=== PATIENT | female | born 1995 | race African-American/Black ===

== ENCOUNTER 2017-01-21 15:37 | Emergency (ER) | payer SELFPAY ==
[2017-01-21 16:39] LABS: BASOPHILS 0.4 %; BASOPHILS ABSOLUTE 0.02 10/3/uL (0.0-0.16); EOSINOPHILS ABSOLUTE 0.09 10/3/uL (0.0-0.53); ER CBC TAT 0 Hrs 09 Mins; HEMATOCRIT 39.1 % (36.0-48.0); HEMOGLOBIN 13.3 g/dL (12.0-16.0); IMMATURE GRANULOCYTES 0.2 %; IMMATURE GRANULOCYTES ABSOLUTE 0.01 10/3/uL (0.0-0.11); LYMPHOCYTES 33.4 %; LYMPHOCYTES ABSOLUTE 1.51 10/3/uL (0.67-4.30); MEAN CORPUSCULAR HEMOGLOB 31.7 pg (26.0-34.0); MEAN PLATELET VOLUME 10.2 fL (9.2-13.0); MONOCYTES 11.7 %; MONOCYTES ABSOLUTE 0.53 10/3/uL (0.21-1.20); NEUTROPHILS 52.3 %; NEUTROPHILS ABSOLUTE 2.36 10/3/uL (2.02-8.40); PLATELET COUNT 266 10/3/uL (150-400); RBC DISTRIBUTION WIDTH 11.9 % (12.0-16.0); RED CELL COUNT 4.19 10/6/uL (4.0-5.6); WHITE BLOOD CELLS 4.5 10/3/uL (4.5-10.5)
[2017-01-21 16:41] LABS: MANUAL DIFF NO %; MEAN CORPUSCULAR VOLUME 93.3 fL (80-100)
[2017-01-21 16:47] LABS: ASCORBIC ACID (UR NOT ORDER) NEG (NEG); BILIRUBIN, URINE NEGATIVE (NEG); KETONE, URINE NEGATIVE (NEG); LEUKOCYTE ESTERASE(NOT OR NEG (NEG); NITRITE (URINE) NEG (NEG); WBC (NOT ORDERED) (RFLEX) 1 (0-5)
[2017-01-21 16:53] LABS: A/G RATIO 1.2 (0.7-1.9); ALKALINE PHOSPHATASE 64 U/L (45-117); BUN (BLOOD UREA NITROGEN) 7 MG/DL (6-23); CALCIUM, SERUM 8.8 MG/DL (8.5-10.4); CHLORIDE, SERUM 105 MMOL/L (96-112); CO2 (CARBON DIOXIDE) 29 MMOL/L (24-34); CREATININE 0.76 MG/DL (0.55-1.02); GFR AFRICAN AMERICAN 131 ML/MIN (>=60); GFR NON AFRICAN AMERICAN 113 ML/MIN (>=60); GLOBULIN 3.4 G/DL (2.5-4.1); GLUCOSE, SERUM 68 MG/DL (60-99); POTASSIUM, SERUM 3.3 MMOL/L (3.5-5.3); SGOT(AST) 9 U/L (5-40); SGPT(ALT) 17 U/L (5-65); SODIUM, SERUM 141 MMOL/L (135-148); TOTAL BILIRUBIN 0.6 MG/DL (0-1.2); TOTAL PROTEIN 7.4 G/DL (6.0-8.5)
== END 2017-01-21 21:07 | disposition home or self-care (01) ==
LOC: ER 15:37
PROVIDERS: Hospitalist
DX: R51 Headache (principal); R05 Cough; R11.0 Nausea
CPT/HCPCS: 71020; 80053; 81001; 83690; 84703; 85025; 93005; 96374; 99284; J1200; J2765